=== PATIENT | female | born 1955 | race African-American/Black ===

== ENCOUNTER → 2017-02-12 | Outpatient (CLI) | payer MEDICARE ==
[~2017-02-12] MED LIST: ACID CONTROL150 M1 PO; ALBUTEROL17 GM INH; ALLEGRA PO; ALLEGRA180 MG PO; AMLODIPINE BESYL5 MG PO; AMOXICILLIN500 M1 PO; BROMFED DM COU118 ML; CARAFATE1 GM PO; CLARINEX5 MG PO; DITROPAN5 MG PO; DULERA 100 MCG/13 GM; EC-NAPROSYN500 MG PO; EXCEDRIN BACK1 EACH PO; FLEXERIL PO; HYDROCODON-ACE1 EAC9 PO; IBUPROFEN800 MG PO; LAMISIL PO; LORTAB 5/500 TA1 TA1 PO; MULTIVITAMINS1 EAC3 PO; NAPROSYN-EC500 MG PO; NEXIUM PO; NORVASC; OMEPRAZOLE20 M1 PO; PRILOSEC PO; PRILOSEC20 MG PO; PROAIR HFA8.5 GM INH; SINGULAIR PO; SUCRALFATE PO; SUDAFED30 M1 PO; TRAMADOL HCL50 M1 PO; TRAMADOL HCL50 M2 PO; TRIAMTERENE-HC1 EACH PO; VICODIN PO; [UNRECOGNIZED DRUG - MIXTURE]; [UNRECOGNIZED DRUG - OTHER] PO; [UNRECOGNIZED DRUG - OTHER] PO; [UNRECOGNIZED DRUG - OTHER] PO
--- NOTE | ~2017-02-12 | EKG ---
PATIENT: RAMONA GUZMAN UNIT #: [id number] Ventricular Rate: 67 BPM Atrial Rate: 67 BPM P-R Interval: 174 ms QRS Duration: 100 ms Q-T Interval: 404 ms QTC Calculation(Bezet): 426 ms P Tavernier: 52 degrees Calculated R Tavernier: -2 degrees Calculated T Tavernier: 1 degrees Diagnosis Line: Normal sinus rhythm Diagnosis Line: Nonspecific ST abnormality Diagnosis Line: Abnormal ECG Diagnosis Line: When compared with ECG of 04-SEP-2013 20:26, Diagnosis Line: No significant change was found Diagnosis Line: Confirmed by RADHA FOX MD ([id number]) on Diagnosis Line: 02/13/2017 6:49:03 AM INTERPRETING : SIDRA
[2017-02-12 15:55] LABS: BUN/CREATININE RATIO 20.83; CALCIUM SERUM 10.3 mg/dL (8.4-10.2); CREATININE SERUM 1.2 mg/dL (0.6-1.4); GLOM FILT RATE Estimated 55.7 mL/min (>60); POTASSIUM 3.9 mmol/L (3.5-5.1)
== END | disposition home or self-care (01) ==
LOC: EDSTATUS 02-10 13:00 → CAMB 02-10 13:00
PROVIDERS: Surgery
DX: Z01.818 Encounter for other preprocedural examination (principal); R22.42 Localized swelling, mass and lump, left lower limb; R94.31 Abnormal electrocardiogram [ECG] [EKG]
CPT/HCPCS: 36415; 80048; 93005

== ENCOUNTER → 2017-02-17 | Day surgery (SDC) | payer MEDICARE ==
--- NOTE | ~2017-02-17 | OR ---
Unit #: [id number] #: [id number] Patient: RAMONA GUZMAN [id number]. [address] [place], [place] [address] [id number] MR#: [id number] NAME: RAMONA GUZMAN ROOM: Date of Procedure: 02/17/2017 Admission Date: 02/17/2017 Surgeon: Shaan Gomez Jr., M.D. : 1955 Attending Physician: Shaan Gomez Jr., M.D. Primary Care Physician: Kapil Perrin M.D. OPERATIVE REPORT INDICATION FOR PROCEDURE The patient is a 61-year-old black female with a large mass of the left upper arm anteriorly. It was felt this was probably a lipoma. She is brought in this time for excision of this. It has been an increasing in size and causing some discomfort at times. PREOPERATIVE DIAGNOSIS Large mass of the left anterior upper arm. POSTOPERATIVE DIAGNOSIS Large mass of the left anterior upper arm, noting a large lipoma approximately 11 to 12 cm in length x 8 cm wide. ANESTHESIA General with LMA. PROCEDURE PERFORMED Excision of large mass, left upper arm. DESCRIPTION OF PROCEDURE The patient was positioned in supine position. After being anesthetized, she was prepped and draped in routine fashion for excision of the mass of the left upper arm described above. A transverse incision was made approximately 5 inches in length over the mass. This was carried down through subcutaneous tissue with a large lipomatous mass being encountered. This was freed up the surrounding tissue with Metzenbaum scissors and down to the deeper subcutaneous tissue near the fascia of the muscle. There were several small veins that ran into the lipoma. These were clamped, divided, and ligated with 3-0 Vicryl stick ties. After the mass was completely removed, it was sent to pathology. Hemostasis was achieved with Bovie cautery. The deeper tissue approximated with interrupted 3-0 Vicryl sutures. The subcutaneous tissue approximated with interrupted 3-0 Vicryl sutures. The skin edges were approximated with stainless-steel skin clips and skin stapling device. Sterile compression dressing was applied. There was a 10 mm Adolph-Arora drain placed in the deeper aspect of the wound prior to closure and brought out through small incision medially. Estimated blood loss less than 25 mL. The patient received less than 1500 mL crystalloid solution during the procedure. Sponges and instrument counts were correct x3. One Adolph-Arora drain used as noted above. No complications. The patient was taken to the recovery room with stable vital signs in satisfactory condition. Unit #: [id number] #: [id number] Patient: RAMONA GUZMAN Dictated by... Shaan Gomez Jr., M.D. JMB/alex TD: 02/17/2017 13:21 JOB #: [id number] CC: Kapil Perrin M.D. OPERATIVE REPORT Page 1 of 1 X Shaan Gomez MD X PROCEDURE OPERATIVE NOTE
== END | disposition home or self-care (01) ==
LOC: CSUR 05:32
DX: M79.89 Other specified soft tissue disorders (principal); L08.89 Other specified local infections of the skin and subcutaneous tissue; J45.909 Unspecified asthma, uncomplicated; K21.9 Gastro-esophageal reflux disease without esophagitis; I11.9 Hypertensive heart disease without heart failure; G47.30 Sleep apnea, unspecified; E66.9 Obesity, unspecified; Z68.38 Body mass index [BMI] 38.0-38.9, adult; Z86.010 Personal history of colon polyps; Z79.891 Long term (current) use of opiate analgesic; Z79.899 Other long term (current) drug therapy; Z90.710 Acquired absence of both cervix and uterus; Z98.890 Other specified postprocedural states
CPT/HCPCS: 88304; J1100; J2250; J2405; J3010